=== PATIENT | male | born 1955 | race Caucasian/White ===

== ENCOUNTER 2023-01-11 12:25 | Day surgery (SDC) | payer OTHER, SELFPAY ==
[2023-01-11 07:09] VITALS: BMI 30.2
[2023-01-11 12:57] VITALS: BP 128/71; PULSE 74; RESP 18; TEMP 36.6; O2SAT 96
[2023-01-11 12:59] LABS: Glucose, Whole Blood 141 mg/dL (60-115)
[2023-01-11] MEDS: Lactated Ringers 1,000 ML 50 ML IVCONT (13:16)
--- NOTE | 2023-01-11 13:40 | HO.ANESPROP2 ---
HPI - Anesthesia Eval Consult details Narrative: epigastric pain gerd PMFSH Past Medical History Medical History (Updated 01/10/23 @ 14:48 by Minnie Hui RN) A-fib Asthma CAD (coronary artery disease) Diabetes mellitus Diverticulosis GERD (gastroesophageal reflux disease) HTN (hypertension) Hyperlipidemia KIMANI on CPAP Pericarditis POTS (postural orthostatic tachycardia syndrome) Family History Family history of problems with anesthesia: No Surgical History Surgical History (Updated 01/10/23 @ 14:48 by Minnie Hui RN) H/O cardiac radiofrequency ablation H/O colonoscopy H/O esophagogastroduodenoscopy History of Problems with Anesthesia: No Social History Social History Patient Tobacco Use Status: Former Tobacco user Are you DNR?: No Advance Directives: No Advance Directives Information Provided: Yes Meds Allergies Allergy/AdvReac Type Severity Reaction Status Date / Time metoclopramide [From Reglan] Allergy Intermediate Hives Verified 01/11/23 13:05 warfarin [From Coumadin] Allergy Intermediate pain Verified 01/11/23 13:05 apixaban [From Eliquis] Allergy Mild Muscle Pain Verified 01/11/23 13:05 oxycodone [From Percocet] Allergy Mild hallucation Verified 01/11/23 13:05 pravastatin [From Pravachol] Allergy Mild Muscle Verified 01/11/23 13:05 cramps sertraline [From Zoloft] Allergy Mild Muscle Pain Verified 01/11/23 13:05 simvastatin Allergy Mild Muscle Pain Verified 01/11/23 13:05 acetaminophen [From Percocet] AdvReac Mild aching Verified 01/11/23 13:05 Active Medications: Current Medications Lactated Ringer's (Lr) 1,000 mls @ 50 mls/hr IVCONT .Q20H COURTNEY Last Admin: 01/11/23 13:16 Dose: 50 mls/hr Home Medications Medication Instructions Recorded Confirmed Last Taken Type albuterol sulfate 90 mcg/actuation inhalation 01/10/23 Unknown History aerosol inhaler atenolol 50 mg tablet 50 mg PO BID 01/10/23 01/10/23 01/11/23 History clotrimazole 10 mg leonardo 10 mg PO 5XD 01/10/23 01/10/23 Unknown History dapagliflozin 10 mg tablet 10 mg PO DAILY 01/10/23 01/10/23 01/11/23 History (Farxiga) diclofenac sodium 1 % topical gel topical BID 01/10/23 Unknown History dulaglutide 1.5 mg/0.5 mL mg subcut 01/10/23 01/03/23 History subcutaneous pen injector ([facility]) fluticasone 500 mcg-salmeterol 50 1 ea inhalation BID 01/10/23 01/10/23 Unknown History mcg/dose blistr powdr for inhalation lisinopril 10 mg tablet 10 mg PO DAILY 01/10/23 01/10/23 01/11/23 History metformin 500 mg tablet,extended 500 mg PO BID 01/10/23 01/10/23 Unknown History release 24 hr omeprazole 40 mg capsule,delayed 40 mg PO DAILY 01/10/23 01/10/23 01/11/23 History release rosuvastatin 40 mg tablet 40 mg PO DAILY 01/10/23 01/10/23 Unknown History Exam Exam Date and Time: January 11, 2023 1340 Height,Weight and Vital Signs: Height 6 ft 2 in Weight 106.594 kg Last Vital Signs Temp 98 F 01/11/23 12:57 Pulse 74 01/11/23 12:57 Resp 18 01/11/23 12:57 BP 128/71 01/11/23 12:57 Pulse Ox 96 01/11/23 12:57 O2 Del Method Room Air 01/11/23 12:57 Pertinent Lab Results Pertinent Lab Results: Laboratory Tests 01/11/23 12:53 POC Glucose 141 H Airway Mallampati Class: II Neck ROM: Full Heart: rr Lungs: cta Assessment and Plan Assessment Anesthesia Assessment: Anesthesia Plan Discussed and Chart Reviewed Final Anesthetic Review Family History of Problems with Anesthesia: No History of Problems with Anesthesia: No NPO: Yes ASA Class: III Final Preanesthetic Review: No Changes in Pt Med Stat and Consent Obtained/Reviewed Patient Risk: Intermediate Procedure Risk: Intermediate Anesthetic Plan Anesthetic Plan: MAC: Disposition: Standard PACU
--- NOTE | 2023-01-11 13:45 | MHC.SHP ---
Pre-Procedural Eval Section A Date of Service: 01/11/23 The patient is an INPATIENT: No Changes since office visit: No Cold of Flu in the past 2 weeks, No New Medical Problems, No Changes in Medication and No Patient answered all questions The History & Physical has been completed within 30 days and I have reviewed it.: Yes Section B Chief Complaint: Gastro-esophageal reflux disease without esophagit Allergies: Allergies Allergy/AdvReac Type Severity Reaction Status Date / Time metoclopramide [From Reglan] Allergy Intermediate Hives Verified 01/11/23 13:05 warfarin [From Coumadin] Allergy Intermediate pain Verified 01/11/23 13:05 apixaban [From Eliquis] Allergy Mild Muscle Pain Verified 01/11/23 13:05 oxycodone [From Percocet] Allergy Mild hallucation Verified 01/11/23 13:05 pravastatin [From Pravachol] Allergy Mild Muscle Verified 01/11/23 13:05 cramps sertraline [From Zoloft] Allergy Mild Muscle Pain Verified 01/11/23 13:05 simvastatin Allergy Mild Muscle Pain Verified 01/11/23 13:05 acetaminophen [From Percocet] AdvReac Mild aching Verified 01/11/23 13:05 Plan I have reviewed the history and physical and performed a pertinent physical examination on my patient. No changes have occurred unless specified. Time Spent With Patient Time: Total time managing care of this patient today ____ minutes.
--- NOTE | 2023-01-11 14:07 | PM.OP ---
Brief Operative Note Date of Service: 01/11/23 Pre-op diagnosis: gerd Post-op diagnosis: same Procedure: egd Surgeon: Vernon Leung Anesthesia: MAC Was an Supervisor Dehydrogenation used for this Procedure?: No Estimated blood loss (mL): 2 Pathology: other Condition: stable Disposition: PACU
[2023-01-11 14:10] VITALS: BP 101/58; PULSE 69; RESP 12; TEMP 36.3; O2SAT 98
[2023-01-11 14:25] VITALS: BP 102/53; PULSE 65; RESP 16; TEMP 36.3; O2SAT 94
--- NOTE | 2023-01-12 | OP_ITS ---
DATE OF SERVICE: 01/11/2023 SURGEON: Vernon Leung MD INDICATIONS: Gastroesophageal reflux disease. PREOPERATIVE DIAGNOSIS: POSTOPERATIVE DIAGNOSIS: PROCEDURE PERFORMED: Upper endoscopy with biopsy. ESTIMATED BLOOD LOSS: COMPLICATIONS: ANESTHESIA: Monitored anesthesia care. ASSISTANTS: SPECIMENS: DESCRIPTION OF PROCEDURE: A history and physical were performed. The risks and benefits of the procedure were explained to the patient. Informed consent was obtained. The patient was placed in the left lateral decubitus position. The Olympus video gastroscope was introduced into the esophagus, stomach, and duodenum. Examination was performed. The scope was removed. He tolerated the procedure well and returned to recovery area in stable condition. FINDINGS: 1. Esophagus: The esophagus was normal. There was no esophagitis. Biopsies were obtained from the esophagogastric junction, which was slightly irregular. 2. Stomach: The stomach showed no evidence of masses, ulcers, or polyps. Antral biopsies were obtained to evaluate for Helicobacter pylori. 3. Duodenum: The bulb and second portion were normal. Second portion biopsies were obtained as the patient had some complaints of right upper quadrant discomfort. IMPRESSION: Normal upper endoscopy. RECOMMENDATIONS: Follow up the biopsy results. MD SUHAS Wilson/MODL / [id number]
== END 2023-01-11 14:57 | disposition home or self-care (01) ==
PROVIDERS: PCP Internal Medicine Geriatric Medicine; Visit Provider Internal Medicine Gastroenterology
PROC: 0DJ08ZZ Inspection of Upper Intestinal Tract, Via Natural or Artificial Opening Endoscopic (ICD-10-PCS; CPT 43235; principal; 2023-01-11 13:40)
DX: K21.9 Gastro-esophageal reflux disease without esophagitis (principal); R91.8 Other nonspecific abnormal finding of lung field; K57.30 Diverticulosis of large intestine without perforation or abscess without bleeding; I10 Essential (primary) hypertension; I31.9 Disease of pericardium, unspecified; I48.91 Unspecified atrial fibrillation; I25.10 Atherosclerotic heart disease of native coronary artery without angina pectoris; Z95.811 Presence of heart assist device; E78.5 Hyperlipidemia, unspecified; E11.9 Type 2 diabetes mellitus without complications; G47.33 Obstructive sleep apnea (adult) (pediatric); G90.A Postural orthostatic tachycardia syndrome [POTS]; J45.909 Unspecified asthma, uncomplicated; Z79.01 Long term (current) use of anticoagulants; Z79.51 Long term (current) use of inhaled steroids; Z79.85 Long-term (current) use of injectable non-insulin antidiabetic drugs; Z79.899 Other long term (current) drug therapy; Z99.89 Dependence on other enabling machines and devices
CPT/HCPCS: 43239; 82947; 88305; 88342